=== PATIENT | male | born 1985 | race Caucasian/White ===

== ENCOUNTER → 2018-07-19 | Outpatient (CLI) | payer BC ==
--- NOTE | 2018-07-19 16:44 | ECHOF ---
Referral Reason:R01.1 Cardiac Murmur MEASUREMENTS -------- HEIGHT: 180.3 cm WEIGHT: 104.3 kg BP: RVIDd: 3.0 cm (< 3.3) IVSd: 1.1 cm (0.6 - 1.1) LVIDd: 5.1 cm (3.9 - 5.3) LVPWd: 1.2 cm (0.6 - 1.1) IVSs: 1.5 cm LVIDs: 3.1 cm LVPWs: 1.6 cm LAESV Index (A-L): 27.61 ml/m Ao Diam: 2.7 cm (2.0 - 3.7) AV Cusp: 1.8 cm (1.5 - 2.6) LA Diam: 3.0 cm (2.7 - 3.8) MV EXCURSION: 15.944 mm (> 18.000) MV EF SLOPE: 107 mm/s (70 - 150) EPSS: 0.6 cm MV E Corey: 0.93 m/s MV DecT: 288 ms MV A Corey: 0.36 m/s MV E/A Ratio: 2.61 RAP: 5.00 mmHg RVSP: 13.79 mmHg FINDINGS -------- Sinus rhythm. This was a technically good study. The left ventricular size is normal. There is borderline concentric left ventricular hypertrophy. Overall left ventricular systolic function is normal with, an EF between 55 - 60 %. The right ventricle is normal in size and function. Normal LA size by volume 22+/-6 ml/m2. The right atrium is normal in size. The aortic valve is trileaflet, and appears structurally normal. No aortic stenosis or regurgitation. The mitral valve is normal. There is trace to mild mitral regurgitation. Trace tricuspid regurgitation present. Right ventricular systolic pressure is normal at < 35 mmHg. There is no evidence of pulmonary hypertension. Trace/mild (physiologic) pulmonic regurgitation. The aortic root size is normal. Normal inferior vena cava with normal inspiratory collapse consistent with estimated right atrial pre ssure of 5 mmHg. There is no pericardial effusion. CONCLUSIONS -------- 1. Sinus rhythm. 2. This was a technically good study. 3. The left ventricular size is normal. 4. There is borderline concentric left ventricular hypertrophy. 5. Overall left ventricular systolic function is normal with, an EF between 55 - 60 %. 6. Normal LA size by volume 22+/-6 ml/m2. 7. The aortic valve is trileaflet, and appears structurally normal. No aortic stenosis or regurgitati on. 8. There is trace to mild mitral regurgitation. 9. Trace tricuspid regurgitation present. 10. Right ventricular systolic pressure is normal at < 35 mmHg. 11. There is no evidence of pulmonary hypertension. 12. Trace/mild (physiologic) pulmonic regurgitation. 13. The aortic root size is normal. 14. There is no pericardial effusion. SLOT FLOORMAN: Mc Lantigua RDCS
== END ==
LOC: RADECHMAIN 13:25
PROVIDERS: ATTEND Family Medicine
DX: I37.1 Nonrheumatic pulmonary valve insufficiency (principal); I34.0 Nonrheumatic mitral (valve) insufficiency; I51.7 Cardiomegaly
CPT/HCPCS: 93306